=== PATIENT | female | born 1930 | race Caucasian/White ===

== ENCOUNTER → 2017-02-16 | Outpatient (CLI) | payer MEDICARE, OTHER ==
[~2017-02-16] MED LIST: AMBR10TA3 PO; ASPI-557 PO; CLOP75TA19 PO; ERGO400C PO; FISH1CAP29 PO; GLUC-120 PO; HYDR59LO5 TOP; ISOS30TA6 PO; METO-230 PO; MULT-1198 PO; PERM60CR4 TOP; TRIA1CAP2 PO; [UNRECOGNIZED DRUG - CODE] PO
[2017-02-16 15:58] LABS: BLOOD, URINE NEGATIVE (NEGATIVE); COLOR,URINE YELLOW (YELLOW); LEUKOCYTE ESTERASE ,URINE NEGATIVE (NEGATIVE); NITRITE,URINE POSITIVE (NEGATIVE); UROBILINOGEN,URINE 0.2 EU/DL (NORMAL)
[2017-02-16 15:59] LABS: BACTERIA,URINE 4+ (NEGATIVE); RBC,URINE NONE SEEN /HPF (0-3); WBC,URINE 0-1 /HPF (0-5)
== END ==
LOC: LABN.CCH 15:51
PROVIDERS: ATTEND Nurse Practitioner Adult Health
DX: R35.0 Frequency of micturition (principal); R30.0 Dysuria; R32 Unspecified urinary incontinence
CPT/HCPCS: 81001; 87086